=== PATIENT | female | born 1965 | race Two or more races ===

== ENCOUNTER 2021-01-30 05:26 | Inpatient (IN) | payer OTHER ==
[~2021-01-30] VITALS: Ht 170.2 cm; Wt 90.3 kg
[~2021-01-30 05:26] MED LIST: ALBUTEROL17 G1 IH; SINGULAIR 10MG10 MG PO; ZYRTEC5 MG PO
[2021-01-30] MEDS ORDERED: SYNTHROID125 MCG (05:44)
--- NOTE | 2021-01-30 05:44 | NUR ---
PTE ALERTA Y ORIENTADA X3 AMBULANDO [place]. PTE REFIERE QUE DESDE ELY PRESENTA DOLOR ABDOMINAL Y MULTIPLES VOMITOS.
--- NOTE | 2021-01-30 06:03 | NUR ---
EVALUA PTE. SE EDUCA A PTE SOBRE [place] MEDICO. PTE REFIERE COMPRENDER. SE REALIZAN MUESTRAS DE LABORATORIO BAJO MEDIDAS ASEPTICAS. SE ADMINISTRAN MEDICAMENTOS CHRISTIANO ORDEN MEDICA. SE NOTIFICA CT. PTE MANEJADA POR .
--- NOTE | 2021-01-30 07:15 | NUR ---
SE RECIBE PTE DEL TURNO ANTERIOR ALERTA Y ORIENTADA X3, EN KATHY NIVEL MAS BAJO CON BARANDAS ELEVADAS POR PRECAUCION. PACIENTE PRESENTA BUEN PATRON RESPIRATORIO, PIEL TIBIA AL TACTO CON AREA DE DE VENOPUNCION PATENTE Y SOLANGE DE EDEMA Y/O ENROJECIMIENTO PATENTE RECIBIENDO 0.9% NSS AT 125 ML/HR. PACIENTE CON FECAL LEUKOCYTES PENDIENTE, PENDIENTE RESULTADOS DE LABORATORIO PARA REALIZAR CT IV.
--- NOTE | 2021-01-30 17:03 | NUR ---
SE RECIBE PTE ALERTA Y OORIENTADA X3 EN KATHY CON BARANDAS ELEVADAS [place] DE FAMILIAR. PTE CON H/L COLOCADO Y 0.9NSS BAJANDO A 125ML/HR. PTE EN ESPERA DE CONSULTA CON MEDICINA INTERNA.
== END 2021-02-07 15:21 | disposition home or self-care (01) | DRG 690 ==
LOC: ER 05:26 → SEC-K 21:04 → SURG 21:04
PROVIDERS: ADMIT Internal Medicine; ATTEND Internal Medicine
PROC: 8E0ZXY6 Isolation (ICD-10-PCS; principal; 2021-01-30)
DX: N10 Acute pyelonephritis (principal); E03.8 Other specified hypothyroidism; N13.6 Pyonephrosis; E11.9 Type 2 diabetes mellitus without complications; N20.0 Calculus of kidney; E86.0 Dehydration; Z20.822 Contact with and (suspected) exposure to COVID-19

== ENCOUNTER 2024-06-13 16:07 | Emergency (ER) | payer OTHER ==
[~2024-06-13] VITALS: Ht 172.7 cm; Wt 105.2 kg
[~2024-06-13 16:07] MED LIST changes: -ATACAND16 MG PO; -SYNTHROID137 MCG PO
[2024-06-13] MEDS ORDERED: SYNTHROID137 MCG PO (16:44)
[2024-06-13] MEDS ORDERED: ATACAND16 MG PO (16:46)
[2024-06-13] MEDS ORDERED: ORPHENADRINE CITRATE 30 MG/ML AMPUL IM STA (18:30)
[2024-06-13 19:09] LABS: HEMATOCRIT 41.5 % (36.0-45.00); HEMOGLOBIN 13.8 g/dL (12.0-15.00); MEAN CORPUSCULAR HGB CONC 33.4 g/dl (32.0-36.0); PLATELET COUNT 242 K/uL (150-450); RED BLOOD COUNT 4.76 M/uL (4.00-6.00); RED CELL DISTRIBUTION WIDTH 14.3 % (11.5-14.5)
[2024-06-13 19:23] LABS: URINE APPEARANCE Clear; URINE BILIRRUBIN Negative (NEGATIVE); URINE BLOOD Large; URINE COLOR Yellow; URINE GLUCOSE Negative (NEGATIVE); URINE KETONE Negative (NEGATIVE); URINE LEUKOCYTE Small; URINE NITRATE Negative; URINE PROTEIN Negative (NEGATIVE); URINE UROBILINOGEN 0.2 E.U./dl
[2024-06-13 19:26] LABS: URINE BACTERIA 827.7 uL (0.0-1933); URINE EPITHELIAL CELLS 27.8 uL (0.0-38.8); URINE RBC 140.7 uL (0.0-20.8); URINE WBC 149.4 uL (0.0-23.2)
[2024-06-13 19:28] LABS: ALBUMIN 3.7 gm/dL (3.4-5.0); BILIRUBIN TOTAL 0.23 mg/dL (0.3-1.2); CREATININE SERUM 0.93 mg/dL (0.55-1.02); GFR 62.36; GLOBULINA 4.3 G/DL (2.4-3.5); POTASSIUM 4.22 mEq/L (3.5-5.1)
[2024-06-13] MEDS ORDERED: KETOROLAC TROMETHAMINE 30 MG VIAL IM STA (19:44)
== END 2024-06-13 20:11 | disposition home or self-care (01) ==
LOC: ER 16:07
PROVIDERS: General Practice
DX: M54.9 Dorsalgia, unspecified (principal)

== ENCOUNTER → 2024-06-13 | Emergency (ER) | payer OTHER ==
[~2024-06-13] MED LIST changes: +ATACAND16 MG PO; +SYNTHROID125 MCG; +SYNTHROID137 MCG PO
== END | disposition home or self-care (01) ==
LOC: ER 14:08
DX: M54.9 Dorsalgia, unspecified (principal)